=== PATIENT | male | born 1995 | race American Indian/Alaskan Native ===

== ENCOUNTER 2016-05-26 04:37 | Emergency (ER) | payer MEDICAID ==
[2016-05-26 04:45] VITALS: BP 112/73
== END 2016-05-26 05:35 | disposition left against medical advice (07) ==
LOC: ED 04:37
DX: L02.32 Furuncle of buttock (principal); Z53.21 Procedure and treatment not carried out due to patient leaving prior to being seen by health care provider

== ENCOUNTER 2017-07-04 03:15 | Emergency (ER) | payer OTHER, BC ==
[2017-07-04 03:31] VITALS: BP 113/83
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
== END 2017-07-04 05:03 | disposition home or self-care (01) ==
LOC: ED 03:15
DX: S16.1XXA Strain of muscle, fascia and tendon at neck level, initial encounter (principal); F32.9 Major depressive disorder, single episode, unspecified; F41.9 Anxiety disorder, unspecified; V87.7XXA Person injured in collision between other specified motor vehicles (traffic), initial encounter; Y93.89 Activity, other specified; Y99.8 Other external cause status; Y92.410 Unspecified street and highway as the place of occurrence of the external cause
CPT/HCPCS: 72125